=== PATIENT | male | born 1945 | race Caucasian/White ===

== ENCOUNTER 2024-02-18 10:51 | Emergency (ER) | payer MEDICARE, SELFPAY ==
[2024-02-18 10:58] VITALS: BP 152/80
[2024-02-18 11:27] LABS: ALT (SGPT) 18 U/L (0-50); AST (SGOT) 21 U/L (17-59); Albumin 4.1 g/dl (3.5-5.0); Alkaline Phosphatase 56 U/L (38-126); Blood Urea Nitrogen 12 mg/dl (9-20); Calcium 8.9 mg/dl (8.4-10.2); Carbon Dioxide 25 mmol/L (22-30); Chloride 105 mmol/L (98-107); Glucose 97 mg/dl (70-99); Potassium 4.4 mmol/L (3.5-5.1); Sodium 135 mmol/L (135-145); Total Bilirubin 0.8 mg/dl (0.2-1.3); eGFR > 60.00
[2024-02-18 11:29] LABS: % Basophils 0.6 % (0-2); % Eosinophils 3.7 % (0-6); % Immature Granulocytes 0.2 % (0-0.5); % Lymphocytes 24.4 % (20.5-51.1); % Neutrophils 61.1 % (42.2-75.2); Absolute Eosinophils 0.2 10^3/uL (0-0.7); Absolute Lymphocytes 1.5 10^3/uL (1.2-3.4); Absolute Monocytes 0.6 10^3/uL (0.1-0.6); Absolute Neutrophils 3.9 10^3/uL (1.4-6.5); Hematocrit 48.2 % (39.0-52.0); Hemoglobin 15.3 g/dL (13.0-18.0); Mean Corp Hgb Conc. 31.7 g/dL (33.0-37.0); Mean Corpuscular Hgb 27.8 pg (27.0-31.0); Mean Corpuscular Volume 87.6 fL (80.0-94.0); Mean Platelet Volume 9.1 fL (7.4-10.4); Nucleated Red Blood Cells % 0 % (-); Platelet Count 166 10^3/uL (130-400); Red Cell Dist. Width 14.6 % (11.5-14.5); White Blood Cell Count 6.3 10^3/uL (4.8-10.8)
--- NOTE | 2024-02-18 12:59 | ED.GENMED ---
History of Present Illness
General
Chief Complaint: Fainting/Passed Out
Source: patient
Exam Limitations: none
Time Seen by Provider: 02/18/24 12:40
Nursing documentation reviewed up to this point in time: agreed with
Travel History
Have you had any contact with someone who has COVID-19?: No
Do you have any symptoms of coronavirus? Fever > 100 degrees, chills, cough, shortness of breath, sore throat, loss of taste or smell, muscle aches, or headache?: No
History of Present Illness
History of Present Illness:
Patient presents to ED secondary to witnessed syncopal episode yesterday while in bed, immediately after having had sexual encounter with his . Per family, patient gently laid back in bed and appeared not to be responsive for 'couple minutes'.
When he did start to respond, he appeared to be confused. Patient himself stated that it took him approximately 20 to 30 minutes before he started to feel like himself. Patient took it easy for the rest of the day. However since the incident,
patient feels as though he does not quite feel like himself. Denies dizziness. Denies headache. Denies chest palpitations. Denies shortness of breath. Denies nausea or vomiting. Denies loss of sensation or weakness. Of note, patient had 1
additional episode of near syncope 10 days ago, when he got up from the couch and found himself at the other end of the couch, without realizing how he got there. In terms of medication changes, patient who had been on Lasix 3 times a week, at the
recommendation of his planning aide, increased to 5 times a week secondary to increased swelling in his arms. Since then, dose of Lasix has been decreased to 4 times a week, secondary to worsening renal function. Patient and family unsure when the
increase of Lasix took place. Denies smoking. Drinks alcohol socially. Patient states that he drinks at least 316 ounce bottles of water daily.
Past History
Past History
ED Past Medical History: HTN, Hypercholesterolemia and Other
ED Past Surgical History: Urological
Social History
Tobacco: Non-smoker
Alcohol: None
Drug: None
Personal:
Living: with family
Employment: Retired
Family History
Family History: Other (Noncontributory)
Review of Systems
Review of Systems
Allergies reviewed?: Yes
All Other Systems: ROS reviewed and negative except as documented in HPI and ROS
Constitutional: Reports no symptoms
EENT: Reports no symptoms
Respiratory: Reports no symptoms
Cardiac: Reports syncope; Denies diaphoresis or palpitations
ABD/GI: Reports no symptoms
Musculoskeletal: Reports no symptoms
Skin: Reports no symptoms
Neurological: Reports dizzy; Denies headache, weakness or numbness
Phy Exam
Physical Exam
Physical Exam:
Physical Exam
General: no apparent distress, not acutely ill. afebrile
Head: nc/at. eomi.
Neck: supple. no meningeal signs.
Heart: s1/s2 regular rate and rhythm, no murmur. equal radial pulses.
Lungs: no acute respiratory distress. clear bilaterally
Abdomen: normal bowel sounds. not tender
Neuro: alert and oriented. no focal neurological deficits. normal speech.
Skin: no rash
Psychiatric: well kept. interactive and cooperative
Extremities: no edema. no calf tenderness.
Course
Orders/Labs/Results
Orders:
Orders
02/18/24 11:00
Electrocardiogram (*1) Urgent
Reason for Study: Syncope
02/18/24 11:01
EKG- Treatment ONCE
02/18/24 11:02
CT Head W/o Iv Contrast Urgent
Comment: feels lightheaded today
Reason For Exam: syncope yesterday
02/18/24 11:08
Complete Blood Count/With Diff Urgent
Comprehensive Metabolic Panel Urgent
Abnormal Lab Results
02/18/24
11:08
MCHC 31.7 L g/dL
(33.0-37.0)
RDW 14.6 H %
(11.5-14.5)
Monocytes % 10.0 H %
(1.7-9.3)
02/18/24 11:08
02/18/24 11:08
Vital Signs
Initial and Last Documented VS:
Initial Vital Signs
Temp Pulse Resp BP Pulse Ox
98.0 F 87 16 152/80 98
02/18/24 10:58 02/18/24 10:58 02/18/24 10:58 02/18/24 10:58 02/18/24 10:58
Last Documented Vital Signs
Temp Pulse Resp BP Pulse Ox
98.0 F 83 16 130/73 95
02/18/24 10:58 02/18/24 15:16 02/18/24 15:16 02/18/24 15:16 02/18/24 15:16
MDM/Problems Addressed
MDM/Problems Addressed:
Outpatient stress test from last Friday obtained from cardiology office (indication: MARTINEZ): no acute abnormalities noted.
Pt with an unremarkable workup in ED, including blood work and CT head. History and exam consistent with likely vagal response, less likely seizure or CVA. Discussed with , neurology, who agrees that patient's symptoms are likely vagally
mediated, less likely neurological in etiology. Does not feel the patient needs any further imaging studies at this time, but can follow-up with PCP as an outpatient.
*EKG
Interpreted by ED Provider?: Yes
EKG Intrepretation Date: 02/18/24
Heart Rate: 81
Rate: normal
Rhythm: sinus
[place]: normal axis
QRS Pattern: right bundle branch block
*Critical Care Note
Total Time (30-74mins, 75-104mins- exclusive of procedures): Not Applicable
ED Attending Note
-
Portions of this chart may have been created with voice recognition software.� Occasional wrong word or��sound alike� substitutions may have occurred due to the inherent limitations of voice recognition software.
Discharge Plan
Departure
Patient Disposition: Home (Routine Discharge)
Date of Disposition: 02/18/24
Time of Disposition: 15:08
Patient with high blood pressure during this ER visit?: Yes
Discharge Problem:
Vasovagal syncope
Instructions: Vasovagal Response (DC)
Prescriptions:
No Action
cyanocobalamin (vitamin B-12) 1,000 MCG tablet
1 tab PO DAILY
naproxen sodium [Aleve] 220 MG tablet
220 mg PO DAILY
rosuvastatin 20 MG tablet
20 mg PO QPM
eszopiclone [Lunesta] 2 MG tablet
2 mg PO HS
pregabalin 50 MG capsule
50 mg PO BID
L.acidoph, paracasei,B. lactis 1 EACH capsule
1 ea PO DAILY
Patient Comments:
Pt states he no longer takes Probiotic daily
Pantoprazole Sodium
40 mg PO DAILY
Stool Softener
1 tab PO DAILY
Vitamin D3:
2,000 units PO DAILY
hydrocodone-acetaminophen 1 TABLET tablet
1 tab PO Q4HPRN PRN (Reason: pain) Qty: 10 0RF
hydrochlorothiazide 25 MG tablet
25 mg PO DAILY
loratadine 10 MG tablet
10 mg PO DAILY PRN (Reason: allergies)
olmesartan [Benicar] 40 MG tablet
40 mg PO DAILY
aspirin-caffeine [Anacin] 1 EACH tablet
1 ea PO DAILY
tramadol 50 MG tablet
50 mg PO Q6HPRN PRN (Reason: pain)
finasteride 5 MG tablet
5 mg PO DAILY
magnesium 200 MG tablet
200 mg PO DAILY
cyclobenzaprine 10 MG tablet
10 mg PO Q8H
tobramycin-dexamethasone 1 DROP drops,suspension
1 drp ophthalmic (eye)
lidocaine [LMX 4] 1 APPLIC cream
1 applic topical
aspirin 325 MG tablet
325 mg PO DAILY Qty: 60 0RF
Rx Instructions:
one tablet daily 6 weeks to prevent blood clots
docusate sodium 100 MG capsule
100 mg PO BID 0RF
alum-mag hydroxide-simeth [Mag-Al Plus] 30 ML suspension
30 ml PO Q4HPRN PRN (Reason: indigestion) 0RF
carbamazepine 200 MG tablet
200 mg PO TID Qty: 10 0RF
gabapentin 300 mg capsule
300 mg PO TID Qty: 30 0RF
ketorolac 10 mg tablet
10 mg PO Q8H PRN (Reason: pain) Qty: 10 0RF
oxycodone-acetaminophen [Percocet] 5-325 mg tablet
1 tab PO Q4HPRN PRN (Reason: pain) Qty: 14 0RF
oxycodone-acetaminophen [Percocet] 5-325 mg tablet
1 tab PO Q6HPRN PRN (Reason: pain) Qty: 10 0RF
Referrals:
Dana Santoyo MD [Family Provider] -
Activity Restrictions/Additional Instructions:
As discussed, please follow up with your primary care physician for re-evaluation.
Interventions
Interventions:
*Risk Screen - Suicide Last Done: 02/18/24 15:14
*General Assessment Last Done: 02/18/24 15:14
*Neglect/Abuse Screening Last Done: 02/18/24 15:14
ED- Fall Risk Assessment Last Done: 02/18/24 15:17
*ED COVID-19 Vaccine History Last Done: 02/18/24 10:57
*Nursing Disposition Last Done: 02/18/24 15:17
ED- Cardiac Assessment Last Done: 02/18/24 15:14
ED- Neurological Assessment Last Done: 02/18/24 15:14
Discharge Date and Time
Discharge Date/Time: 02/18/24 15:18
[2024-02-18 15:16] VITALS: BP 130/73
== END 2024-02-18 15:18 | disposition home or self-care (01) ==
LOC: EMR 10:51
PROVIDERS: Emergency Medicine; EMERGENCY PHYSICIAN Emergency Medicine; FAMILY PHYSICIAN Internal Medicine
DX: R55 Syncope and collapse (principal); I45.10 Unspecified right bundle-branch block; I10 Essential (primary) hypertension; I25.10 Atherosclerotic heart disease of native coronary artery without angina pectoris; E78.00 Pure hypercholesterolemia, unspecified; G47.30 Sleep apnea, unspecified; K21.9 Gastro-esophageal reflux disease without esophagitis; N40.0 Benign prostatic hyperplasia without lower urinary tract symptoms; Z95.5 Presence of coronary angioplasty implant and graft; Z87.891 Personal history of nicotine dependence; Z79.82 Long term (current) use of aspirin; Z88.8 Allergy status to other drugs, medicaments and biological substances; Z91.048 Other nonmedicinal substance allergy status
CPT/HCPCS: 99284; 70450; 80053; 85025; 93005

== ENCOUNTER → 2025-06-20 16:40 | Outpatient (REF) | payer MEDICARE, SELFPAY ==
[2025-06-20 17:38] LABS: Urine Character Clear (Clear)
[2025-06-20 19:32] LABS: Urine Red Blood Cell 0-2 /HPF (0-2)
== END ==
LOC: CLAB 16:40
PROVIDERS: ATTENDING PHYSICIAN Specialist
DX: N39.0 Urinary tract infection, site not specified (principal)
CPT/HCPCS: 81003; 81015; 87077; 87086

== ENCOUNTER → 2025-10-10 10:36 | Outpatient (REF) | payer OTHER, SELFPAY | LOC: RAD 10:36 | PROVIDERS: ATTENDING PHYSICIAN Internal Medicine | DX: R05.9 Cough, unspecified (principal); R50.9 Fever, unspecified; U07.1 COVID-19 | CPT/HCPCS: 71046 ==